=== PATIENT | male | born 1975 | race Hispanic/Latino ===

== ENCOUNTER 2020-11-12 14:51 | Inpatient (IN) | payer BC, SELFPAY ==
[~2020-11-12 14:51] MED LIST: Iopamidol-370 76% 500 ML 1 ML ONE
[2020-11-12 16:00] LABS: #Eosinphils 0.1 thou/uL (0.0-0.7); #Lymphocytes 0.8 thou/uL (1.20-3.40); #Monocytes 0.9 thou/uL (0.11-0.59); #Neutrophils 8.2 thou/uL (1.40-6.50); %Basophils 0.4 % (0.0-1.0); %Eosinophils 1.1 % (0.0-10.0); %Lymphocytes 8.2 % (21.0-51.0); %Monocytes 8.7 % (0.0-10.0); %Neutrophils 81.6 % (42.0-75.0); Hemoglobin 14.9 g/dL (14.0-18.0); Mean Corpuscular HGB CONC 33.9 g/dL (32.0-36.0); Mean Corpuscular Hemoglobin 31.5 pg (27.0-31.0); Mean Corpuscular Volume 92.9 fL (78.0-98.0); Mean Platelet Volume 7.1 fL (7.4-10.4); Platelet Count 305 thou/uL (130-400); RBC Distribution Width 11.8 % (11.5-14.5); Red Blood Cell (RBC) Count 4.75 mill/uL (4.70-6.10); White Blood Cell (WBC) Count 10.1 thou/uL (4.8-10.8)
[2020-11-12 16:20] LABS: ALT (SGPT) 83 U/L (8-55); AST (SGOT) 47 U/L (5-34); Albumin 3.3 g/dL (3.5-5.0); Alkaline Phosphatase 99 U/L (40-110); Anion Gap 17 mmol/L (10-20); BUN (Urea Nitrogen) 19 mg/dL (8.9-20.6); Bilirubin, Total 0.8 mg/dL (0.2-1.2); Calc. Creatinine Clearance 0 mL/min (70-130); Calcium 8.5 mg/dL (7.8-10.44); Carbon Dioxide 23 mmol/L (22-29); Chloride 100 mmol/L (98-107); Globulin 3.6 g/dL (2.4-3.5); Glucose 108 mg/dL (70-105); Potassium 4.3 mmol/L (3.5-5.1); Protein, Total 6.9 g/dL (6.0-8.3); Sodium 136 mmol/L (136-145)
[2020-11-12] MEDS ORDERED: Acetaminophen 500 MG TAB ONE (16:28)
[2020-11-12] MEDS ORDERED: HYDROcodone/Acetaminophen 5/325 mg Tablet PO PRN (20:33)
[2020-11-12] MEDS ORDERED: Ondansetron ODT 4 MG TAB PO PRN (20:33)
[2020-11-12] MEDS ORDERED: Ondansetron PF 4 MG/2 ML Vial IVP PRN (20:33)
[2020-11-12] MEDS ORDERED: Senokot S 8.6-50 MG TAB PO PRN (20:33)
[2020-11-12] MEDS ORDERED: Acetaminophen 325 MG TAB PO PRN (20:33)
[2020-11-12] MEDS ORDERED: Benzonatate 100 MG CAP PO PRN (20:36)
[2020-11-12 23:41] VITALS: BMI 31.5
[2020-11-13] MEDS: Melatonin 3 MG TAB PO SCH ×2 (00:49→21:43)
[2020-11-13] MEDS: Guaifenesin DM 100-10/5 ML UDCUP PO PRN ×3 (05:05→21:43)
[2020-11-13 05:48] LABS: #Eosinphils 0.1 thou/uL (0.0-0.7); #Lymphocytes 0.6 thou/uL (1.20-3.40); #Monocytes 0.5 thou/uL (0.11-0.59); #Neutrophils 9.7 thou/uL (1.40-6.50); %Basophils 0.2 % (0.0-1.0); %Eosinophils 0.5 % (0.0-10.0); %Lymphocytes 5.3 % (21.0-51.0); %Monocytes 4.7 % (0.0-10.0); %Neutrophils 89.4 % (42.0-75.0); Hemoglobin 14.5 g/dL (14.0-18.0); Mean Corpuscular HGB CONC 33.8 g/dL (32.0-36.0); Mean Corpuscular Hemoglobin 31.2 pg (27.0-31.0); Mean Corpuscular Volume 92.4 fL (78.0-98.0); Mean Platelet Volume 7.2 fL (7.4-10.4); Platelet Count 297 thou/uL (130-400); RBC Distribution Width 11.7 % (11.5-14.5); Red Blood Cell (RBC) Count 4.66 mill/uL (4.70-6.10); White Blood Cell (WBC) Count 10.8 thou/uL (4.8-10.8)
[2020-11-13 06:29] LABS: Anion Gap 15 mmol/L (10-20); BUN (Urea Nitrogen) 17 mg/dL (8.9-20.6); Calc. Creatinine Clearance 167 mL/min (70-130); Calcium 8.4 mg/dL (7.8-10.44); Carbon Dioxide 21 mmol/L (22-29); Chloride 103 mmol/L (98-107); Glucose 102 mg/dL (70-105); Potassium 4.2 mmol/L (3.5-5.1); Sodium 135 mmol/L (136-145)
[2020-11-13] MEDS: Enoxaparin Sodium 40 MG/0.4 ML SYRINGE SC SCH (08:52)
[2020-11-13] MEDS: Cholecalciferol 1,000 UNITS (25 MCG) TAB PO SCH (08:53)
[2020-11-13] MEDS: Zinc Sulfate 220 MG CAP PO SCH (08:53)
[2020-11-13] MEDS: Dexamethasone 4 mg/ml Vial SLOW IVP SCH (08:53)
[2020-11-13] MEDS: Ascorbic Acid 500 mg Chewable Tablet PO SCH (08:54)
[2020-11-13] MEDS: cefTRIAXone\\ROCEPHIN 1 GM in Sodium Chloride 0.9% 100 ML IVPB SCH (11:41)
[2020-11-13] MEDS: Benzonatate 100 MG CAP PO SCH (21:00)
[2020-11-13] MEDS ORDERED: Atorvastatin Calcium 20 MG TAB PO SCH (21:00)
[2020-11-14] MEDS: Guaifenesin DM 100-10/5 ML UDCUP PO PRN ×2 (05:31→12:36)
[2020-11-14 05:48] LABS: ALT (SGPT) 57 U/L (8-55); AST (SGOT) 30 U/L (5-34); Alkaline Phosphatase 73 U/L (40-110); Anion Gap 16 mmol/L (10-20); BUN (Urea Nitrogen) 17 mg/dL (8.9-20.6); Bilirubin, Total 0.5 mg/dL (0.2-1.2); Calc. Creatinine Clearance 165 mL/min (70-130); Calcium 8.6 mg/dL (7.8-10.44); Carbon Dioxide 21 mmol/L (22-29); Chloride 103 mmol/L (98-107); Globulin 3.6 g/dL (2.4-3.5); Glucose 115 mg/dL (70-105); Potassium 4.6 mmol/L (3.5-5.1); Protein, Total 6.6 g/dL (6.0-8.3); Sodium 135 mmol/L (136-145)
[2020-11-14] MEDS: Enoxaparin Sodium 40 MG/0.4 ML SYRINGE SC SCH (09:11)
[2020-11-14] MEDS: Ascorbic Acid 500 mg Chewable Tablet PO SCH (09:12)
[2020-11-14] MEDS: Benzonatate 100 MG CAP PO SCH (09:12)
[2020-11-14] MEDS: Zinc Sulfate 220 MG CAP PO SCH (09:12)
[2020-11-14] MEDS: Dexamethasone 4 mg/ml Vial SLOW IVP SCH (09:12)
[2020-11-14] MEDS: Cholecalciferol 1,000 UNITS (25 MCG) TAB PO SCH (09:13)
[2020-11-14] MEDS: cefTRIAXone\\ROCEPHIN 1 GM in Sodium Chloride 0.9% 100 ML IVPB SCH (09:13)
[2020-11-14 17:07] VITALS: BP 122/68; TEMP 98.5
== END 2020-11-14 17:02 | disposition home or self-care (01) | DRG 177 ==
LOC: ERS 14:51 → 2SW 20:14
PROVIDERS: ADMIT Internal Medicine; ATTEND Internal Medicine
PROC: 8E0ZXY6 Isolation (ICD-10-PCS; principal; 2020-11-12)
DX: U07.1 COVID-19 (principal); J12.82 Pneumonia due to coronavirus disease 2019; J96.01 Acute respiratory failure with hypoxia; E78.5 Hyperlipidemia, unspecified; F17.200 Nicotine dependence, unspecified, uncomplicated; R74.01 Elevation of levels of liver transaminase levels; Z90.49 Acquired absence of other specified parts of digestive tract
CPT/HCPCS: 36415; 71045; 71275; 80048; 80053; 82728; 84145; 84484; 85025; 85379; 86140; 93005; J0696; J1100; J1650; J3490; Q9967